=== PATIENT | male | born 1950 | race Caucasian/White ===

== ENCOUNTER 2018-11-17 10:09 | Emergency (ER) | payer MEDICARE, SELFPAY ==
[2018-11-17 10:10] VITALS: PULSE 78; RESP 18; O2SAT 98
[2018-11-17 10:19] VITALS: BP 197/98; PULSE 77; RESP 15; TEMP 36.6; O2SAT 98
--- NOTE | 2018-11-17 10:32 | DI.RAD.S_ITS ---
PROCEDURE: XR CHEST 2V INDICATIONS: pluritic chest pain / sob. TECHNIQUE: 2 views of the chest were acquired. COMPARISON: None. FINDINGS: Surgical changes and devices: None. Lungs and pleura: Lungs are clear. No pleural effusions or pneumothorax. Mediastinum: Mediastinal contours are normal. Heart size is normal. Bones and chest wall: No suspicious bony abnormalities. Soft tissues appear unremarkable. IMPRESSION: No acute cardiopulmonary disease process. Dictated by: Lou Staples MD, PhD on 11/17/2018 at 10:45 Approved by: Lou Staples MD, PhD on 11/17/2018 at 10:45
[2018-11-17 11:20] LABS: Add Manual Diff / Slide Review NO; Basophils Absolute Auto 100 /uL (0-100); Basophils Percent Auto 1.1 % (0-2); Eosinophils Absolute Auto 400 /uL (0-450); Eosinophils Percent Auto 4.2 % (2-4); Hematocrit 54.1 % (41-53); Hemoglobin 18.5 g/dL (13.5-17.5); Lymphocytes Absolute Auto 2600 /uL (1100-4500); Lymphocytes Percent Auto 28.7 % (25-40); Mean Corpuscular HGB Conc 34.2 % (30-36); Mean Corpuscular Hemoglobin 30.8 PG (26-34); Mean Corpuscular Volume 90.1 fL (80-100); Monocytes Absolute Auto 700 /uL (0-900); Monocytes Percent Auto 7.6 % (3-14); Neutrophils Absolute Auto 5300 /uL (1500-7000); Neutrophils Percent Auto 58.4 % (50-75); Platelet Count 262 X10^3/uL (150-400); Red Cell Distribution Width 13.9 % (11.6-14.8); White Blood Cell Count 9.1 X10^3/uL (4.5-11.0)
[2018-11-17 11:33] LABS: Alanine Aminotransferase 38 IU/L (21-72); Albumin 4.4 g/dL (3.5-5.0); Albumin Globulin Ratio 1.3 (1.0-2.8); Alkaline Phosphatase 144 U/L (38-126); Aspartate Aminotransferase 31 IU/L (17-59); BUN Creatinine Ratio 21.3 (6-22); Bilirubin Total 0.5 mg/dL (0.2-1.3); Blood Urea Nitrogen 17 mg/dL (9-20); Carbon Dioxide 23 mmol/L (22-32); Chloride 107 mmol/L (98-107); Creatine Kinase 55 U/L (55-170); Estimated Glomerular Filt Rate > 60.0 mL/min (>60); Globulin 3.5 g/dL (1.7-4.1); Glucose 104 mg/dL (80-110); HEMOLYSIS 20 (0-50); Lipase 43 U/L (23-300); Potassium 4.5 mmol/L (3.4-5.1); Sodium 139 mmol/L (137-145); Total Protein 7.9 g/dL (6.3-8.2)
[2018-11-17 11:35] VITALS: BP 189/90; PULSE 81; RESP 18; O2SAT 96
[2018-11-17 11:45] LABS: Troponin I < 0.012 ng/mL (0.01-0.034)
[2018-11-17 12:00] VITALS: BP 183/84; PULSE 84; RESP 19; O2SAT 95
--- NOTE | 2018-11-17 12:23 | ED.CHESTPAIN ---
HPI - Chest Pain General Chief Complaint: Chest Pain Stated Complaint: chest pain, hard to breathe, cant lift rt arm Time Seen by Provider: 11/17/18 12:20 Source: patient and family () Mode of arrival: ambulatory Limitations: no limitations History of Present Illness HPI narrative: This is a 67-year-old male who comes in with complaint of anterior chest pain but also pain down the right side and sometimes the left side of his side/chest/back. Patient states that is worse with movement. Particularly if he lifts his arms up over his head. If he bends over. He has also started complaining of some hip pain and pain in his arches of his feet and joints such as his knees and ankles. 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 He states he has been very hard on his body. He states that he can reproduce the chest pain by pushing on his chest. If he coughs it makes it worse. He does not feel short of breath at this time. He does not find that exertion makes him more short of breath. He has not had any nausea, no vomiting no diaphoresis with these episodes. He has not had any swelling in his lower extremities. No abdominal pain. no issues with urination. No diarrhea or constipation. He has not had any cold cough or congestion. Patient states that he was diagnosed with hypertension several years ago, he has not followed up for continued with his lisinopril. He saw about a year ago but does not followup 1 regularly. He has not had any prior surgeries. He has never had a stress test. He does not have any known cardiac, pulmonary embolic or autoimmune family history of that he is aware of. He does smoke. Related Data Home Medications Medication Instructions Recorded Confirmed ibuprofen 1 dose PO PRN PRN 11/17/18 11/17/18 naproxen sodium [Aleve] 220 mg PO PRN PRN 11/17/18 11/17/18 Allergies Allergy/AdvReac Type Severity Reaction Status Date / Time No Known Drug Allergies Allergy Verified 11/17/18 10:13 Review of Systems Review of Systems ROS Unobtainable: All systems reviewed & are unremarkable except as noted in HPI and below Constitutional Denies chills, Denies fever(s), Denies headache(s), Denies lethargy and Denies weakness ENT Ears, Nose, Mouth, and Throat: Denies headache(s) and Denies nasal congestion Cardiovascular Reports chest pain (Worse with movement), Denies chest pain at rest, Denies chest pain with activity, Denies diaphoresis, Denies syncope, Denies rapid heart rate, Denies edema, Denies irregular heart rhythm, Denies lightheadedness, Denies radiating jaw, neck or arm pain, Denies palpitations, Denies dyspnea, Denies dyspnea on exertion and Denies orthopnea Respiratory Denies change in phlegm color, Denies chest congestion, Denies cough, Denies hemoptysis, Reports pain with cough, Denies dyspnea, Denies dyspnea on exertion and Denies wheezing Gastrointestinal Gastrointestinal: Denies abdominal pain, Denies melena, Denies hematochezia, Denies change in bowel habits, Denies diarrhea, Denies nausea and Denies vomiting Genitourinary Denies hematuria, Denies dysuria, Denies flank pain, Denies urinary hesitancy, Denies urinary incontinence and Denies urinary urgency Musculoskeletal Reports back pain, Denies myalgias, Reports arthralgias and Denies tingling Integumentary/Breasts Denies rash and Denies unusual bruising Neurologic Denies syncope, Denies headache(s), Denies sensory deficit, Denies tingling and Denies weakness Endocrine Denies palpitations Allergic/Immunologic Denies wheezing [facility] Medical History (Updated 11/17/18 @ 19:37 by Dayna Liu DO) Hypertension (Chronic) Social History Smoking Status: Current every day smoker Social History (Updated 11/17/18 @ 19:31 by Dayna Liu DO) marital status: Smoking Status: Current every day smoker alcohol intake: current substance use type: does not use and marijuana Exam Narrative Exam Narrative: GENERAL: Alert and oriented x three, HEENT: Head normocephalic, atraumatic, EOMI, pupils reactive, face symmetric, moist mucous membranes NECK: Supple, full range of motion CARDIOVASCULAR: Regular rate and rhythm without murmurs, rubs or gallops. Able to recreated pain with palpation of anterior sternum. RESPIRATORY: Breath sounds equal bilaterally, no wheezes rales or rhonchi. No tachypnea. No accessory muscle use. ABDOMEN: Soft, nontender. Normoactive bowel sounds all 4 quadrants. No guarding or rebound, rigidity, no mass, patient has umbilical hernia that is nontender. Soft and reducible. : No CVA tenderness EXTREMITIES: Normal range of motion, no clubbing or edema. 2+ pulses in all 4 extremities. Neurovascularly intact NEUROLOGICAL: Cranial nerves II through XII grossly intact. Moving all extremities SKIN: Warm, dry, no petechiae, no rashes or lesions. Initial Vital Signs Initial Vital Signs: Vital Signs Pulse Rate 78 11/17/18 10:10 Respiratory Rate 18 11/17/18 10:10 Pulse Oximetry 98 11/17/18 10:10 Scores HEART Score Heart Score history: Slightly Suspicious Heart Score EKG: Non-Specific repolarization disturbance Heart Score Age: > or = 65 years old Heart Score risk factors: 1-2 risk factors Heart Score troponin: < or = to normal limit Heart Score Total: 4 Course Orders Ordered: ED Orders 11/17/18 10:32 XR chest 2V Stat 11/17/18 11:10 Complete Blood Count AUTO DIFF Stat Comprehensive Metabolic Panel Stat Lipase Stat Troponin & CK Cardiac Panel Stat 11/17/18 11:16 Erythrocyte Sedimentation Rate Stat Thyroid Stimulating Hormone Stat Vital Signs - 8 hr 11/17/18 11:35 11/17/18 12:00 Pulse Rate 81 84 Respiratory Rate 18 19 Blood Pressure [Right Arm] 189/90 H 183/84 H Pulse Oximetry 96 95 MDM - Chest Pain Lab Data Attestation: I reviewed the patient's lab results. Result diagrams: 11/17/18 11:10 11/17/18 11:10 Lab Results 11/17/18 11/17/18 11/17/18 Range/Units 11:10 11:10 11:16 WBC 9.1 (4.5-11.0) X10^3/uL RBC 6.00 H (4.5-5.9) X10^6/uL Hgb 18.5 H (13.5-17.5) g/dL Hct 54.1 H (41-53) % MCV 90.1 (80-100) fL MCH 30.8 (26-34) PG MCHC 34.2 (30-36) % RDW 13.9 (11.6-14.8) % Plt Count 262 (150-400) X10^3/uL Neut % (Auto) 58.4 (50-75) % Lymph % (Auto) 28.7 (25-40) % [place] % (Auto) 7.6 (3-14) % Eos % (Auto) 4.2 H (2-4) % Baso % (Auto) 1.1 (0-2) % Neut # (Auto) 5300 (8860-9216) /uL Lymph # (Auto) 2600 (2120-5465) /uL [place] # (Auto) 700 (0-900) /uL Eos # (Auto) 400 (0-450) /uL Baso # (Auto) 100 (0-100) /uL ESR 2 (0-15) MM/HR Sodium 139 (137-145) mmol/L Potassium 4.5 (3.4-5.1) mmol/L Chloride 107 (98-107) mmol/L Carbon Dioxide 23 (22-32) mmol/L BUN 17 (9-20) mg/dL Creatinine 0.80 (0.66-1.25) mg/dL Estimated GFR > 60.0 (>60) mL/min BUN/Creatinine Ratio 21.3 (6-22) Glucose 104 (80-110) mg/dL Calcium 9.0 (8.4-10.2) mg/dL Total Bilirubin 0.5 (0.2-1.3) mg/dL AST 31 (17-59) IU/L ALT 38 (21-72) IU/L Alkaline Phosphatase 144 H (38-126) U/L Total Creatine Kinase 55 (55-170) U/L CK-MB (CK-2) TNP CK-MB (CK-2) Rel Index TNP Troponin I < 0.012 (0.01-0.034) ng/mL Total Protein 7.9 (6.3-8.2) g/dL Albumin 4.4 (3.5-5.0) g/dL Globulin 3.5 (1.7-4.1) g/dL Albumin/Globulin Ratio 1.3 (1.0-2.8) Lipase 43 (23-300) U/L TSH (0.47-4.68) uIU/mL 11/17/18 Range/Units 11:16 WBC (4.5-11.0) X10^3/uL RBC (4.5-5.9) X10^6/uL Hgb (13.5-17.5) g/dL Hct (41-53) % MCV (80-100) fL MCH (26-34) PG MCHC (30-36) % RDW (11.6-14.8) % Plt Count (150-400) X10^3/uL Neut % (Auto) (50-75) % Lymph % (Auto) (25-40) % [place] % (Auto) (3-14) % Eos % (Auto) (2-4) % Baso % (Auto) (0-2) % Neut # (Auto) (5702-5586) /uL Lymph # (Auto) (0887-1513) /uL [place] # (Auto) (0-900) /uL Eos # (Auto) (0-450) /uL Baso # (Auto) (0-100) /uL ESR (0-15) MM/HR Sodium (137-145) mmol/L Potassium (3.4-5.1) mmol/L Chloride (98-107) mmol/L Carbon Dioxide (22-32) mmol/L BUN (9-20) mg/dL Creatinine (0.66-1.25) mg/dL Estimated GFR (>60) mL/min BUN/Creatinine Ratio (6-22) Glucose (80-110) mg/dL Calcium (8.4-10.2) mg/dL Total Bilirubin (0.2-1.3) mg/dL AST (17-59) IU/L ALT (21-72) IU/L Alkaline Phosphatase (38-126) U/L Total Creatine Kinase (55-170) U/L CK-MB (CK-2) CK-MB (CK-2) Rel Index Troponin I (0.01-0.034) ng/mL Total Protein (6.3-8.2) g/dL Albumin (3.5-5.0) g/dL Globulin (1.7-4.1) g/dL Albumin/Globulin Ratio (1.0-2.8) Lipase (23-300) U/L TSH 3.31 (0.47-4.68) uIU/mL Imaging Data Chest x-ray: Radiologist's impression: Krish Cunningham 67 M [address] [address] XRay Report Signed Patient: Krish Cunningham EMR#: [id number] : 3Acct:[id number] Age/Sex: 67 / MDate of Service: 11/17/18 Loc: ED Accession Number: [id number] Procedure: XR chest 2V Ordering Provider: Dayna Liu D.O. PROCEDURE: XR CHEST 2V INDICATIONS: pluritic chest pain / sob. TECHNIQUE: 2 views of the chest were acquired. COMPARISON: None. FINDINGS: Surgical changes and devices: None. Lungs and pleura: Lungs are clear. No pleural effusions or pneumothorax. Mediastinum: Mediastinal contours are normal. Heart size is normal. Bones and chest wall: No suspicious bony abnormalities. Soft tissues appear unremarkable. IMPRESSION: No acute cardiopulmonary disease process. Dictated by: Lou Staples MD, PhD on 11/17/2018 at 10:45 Approved by: Lou Staples MD, PhD on 11/17/2018 at 10:45 ECG Data Attestation: I personally reviewed and interpreted this ECG as follows: Prior ECG tracings: not available for review Interpretation: Sinus rhythm ventricular rate of 78 P are interval 171 QRS of 105 and QTC of 384. Sinus rhythm. Q-waves in V1 V2. Left axis deviation MDM Narrative Medical decision making narrative: Discussed with the patient all of his pain seems to be with movement and not with exertion or atypical cardiac chest pain. He is also having pain in his other joints. 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 We did discuss checking YANNI an ESR although these are very nonspecific labs. He also may benefit from a TSH which was checked and is in normal range. The rest of his lab work is normal. He has had his symptoms of chest pain on for several weeks to month. He came in today because he did want to go to work because of his discomfort. He is not having any shortness of breath. he does have some risk factors sounds like he has history of hypertension, he may have dyslipidemia he has obesity and he smokes regularly. Family history his mom from CHF at about 89 and did not have a lot of medical problems before then his father from cancer either gastric or possibly esophageal at 87. Discussed with the patient he should have a primary care stress testing may be helpful for him. He is seems willing. Was given referral number. We also discussed his umbilical hernia. Discussed signs and symptoms to watch for and need for surgical repair if he has any of these. Discharge Plan Departure Patient Disposition: Home Clinical Impression: Chest pain, Hernia, umbilical, Joint pain Discharge Date/Time: 11/17/18 12:55 Interventions: ED Discharge Assessment Last Done: 11/17/18 12:53 Instructions: DI for Atypical Chest Pain Activity Restrictions/Additional Instructions: Follow up with primary care, call the Health resources coordinator at [phone] to help find a primary care physician. I do recommend following up regarding your blood pressure, to check your cholesterol as well as discussion about stress testing. You may continue with ibuprofen and/or Tylenol as needed for joint pain. Return to the ER for fevers greater than 100.4, worsening or new chest pain, shortness of breath, diaphoresis, nausea or persistent vomiting, passing out, sudden severe abdominal pain, if your umbilical hernia becomes painful or you are not able to reduce it, or other new or concerning symptoms. Prescriptions: No Action naproxen sodium [Aleve] 220 mg Tablet 220 mg PO PRN PRN (Reason: pain) RF: 0 ibuprofen 200 mg Tablet 1 dose PO PRN PRN (Reason: pain) RF: 0
--- NOTE | 2018-11-17 12:59 | ED_ITS ---
HPI - Chest Pain General Chief Complaint: Chest Pain Stated Complaint: chest pain, hard to breathe, cant lift rt arm Time Seen by Provider: 11/17/18 12:20 Source: patient and family () Mode of arrival: ambulatory Limitations: no limitations History of Present Illness HPI narrative: This is a 67-year-old male who comes in with complaint of anterior chest pain but also pain down the right side and sometimes the left side of his side/chest/back. Patient states that is worse with movement. Particularly if he lifts his arms up over his head. If he bends over. He has also started complaining of some hip pain and pain in his arches of his feet and joints such as his knees and ankles. 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 He states he has been very hard on his body. He states soto t he can reproduce the chest pain by pushing on his chest. If he coughs it makes it worse. He does not feel short of breath at this time. He does not find that exertion makes him more short of breath. He has not had any nausea, no vomiting no diaphoresis with these episodes. He has not had any swelling in his lower extremities. No abdominal pain. no issues with urination. No diarrhea or constipation. He has not had any cold cough or congestion. Patient states that he was diagnosed with hypertension several years ago, he has not followed up for continued with his lisinopril. He saw about a year ago but does not followup 1 regularly. He has not had any prior surgeries. He has never had a stress test. He does not have any known cardiac, pulmonary embolic or autoimmune family history of that he is aware of. He does smoke. Related Data Home Medications Medication Instructions Recorded Confirmed ibuprofen 1 dose PO PRN PRN 11/17/18 11/17/18 naproxen sodium [Aleve] 220 mg PO PRN PRN 11/17/18 11/17/18 Allergies Allergy/AdvReac Type Severity Reaction Status Date / Time No Known Drug Allergies Allergy Verified 11/17/18 10:13 Review of Systems Review of Systems ROS Unobtainable: All systems reviewed & are unremarkable except as noted in HPI and below Constitutional Denies chills, Denies fever(s), Denies headache(s), Denies lethargy and Denies weakness ENT Ears, Nose, Mouth, and Throat: Denies headache(s) and Denies nasal congestion Cardiovascular Reports chest pain (Worse with movement), Denies chest pain at rest, Denies chest pain with activity, Denies diaphoresis, Denies syncope, Denies rapid heart rate, Denies edema, Denies irregular heart rhythm, Denies lightheadedness, Denies radiating jaw, neck or arm pain, Denies palpitations, Denies dyspnea, Denies dyspnea on exertion and Denies orthopnea Respiratory Denies change in phlegm color, Denies chest congestion, Denies cough, Denies hemoptysis, Reports pain with cough, Denies dyspnea, Denies dyspnea on exertion and Denies wheezing Gastrointestinal Gastrointestinal: Denies abdominal pain, Denies melena, Denies hematochezia, Denies change in bowel habits, Denies diarrhea, Denies nausea and Denies vomiting Genitourinary Denies hematuria, Denies dysuria, Denies flank pain, Denies urinary hesitancy, Denies urinary incontinence and Denies urinary urgency Musculoskeletal Reports back pain, Denies myalgias, Reports arthralgias and Denies tingling Integumentary/Breasts Denies rash and Denies unusual bruising Neurologic Denies syncope, Denies headache(s), Denies sensory deficit, Denies tingling and Denies weakness Endocrine Denies palpitations Allergic/Immunologic Denies wheezing [facility] Medical History (Updated 11/17/18 @ 19:37 by Dayna Liu DO) Hypertension (Chronic) Social History Smoking Status: Current every day smoker Social History (Updated 11/17/18 @ 19:31 by Dayna Liu DO) marital status: Smoking Status: Current every day smoker alcohol intake: current substance use type: does not use and marijuana Exam Narrative Exam Narrative: GENERAL: Alert and oriented x three, HEENT: Head normocephalic, atraumatic, EOMI, pupils reactive, face symmetric, moist mucous membranes NECK: Supple, full range of motion CARDIOVASCULAR: Regular rate and rhythm without murmurs, rubs or gallops. Able to recreated pain with palpation of anterior sternum. RESPIRATORY: Breath sounds equal bilaterally, no wheezes rales or rhonchi. No tachypnea. No accessory muscle use. ABDOMEN: Soft, nontender. Normoactive bowel sounds all 4 quadrants. No guarding or rebound, rigidity, no mass, patient has umbilical hernia that is nontender. Soft and reducible. : No CVA tenderness EXTREMITIES: Normal range of motion, no clubbing or edema. 2+ pulses in all 4 extremities. Neurovascularly intact NEUROLOGICAL: Cranial nerves II through XII grossly intact. Moving all extremities SKIN: Warm, dry, no petechiae, no rashes or lesions. Initial Vital Signs Initial Vital Signs: Vital Signs Pulse Rate 78 11/17/18 10:10 Respiratory Rate 18 11/17/18 10:10 Pulse Oximetry 98 11/17/18 10:10 Scores HEART Score Heart Score history: Slightly Suspicious Heart Score EKG: Non-Specific repolarization disturbance Heart Score Age: > or = 65 years old Heart Score risk factors: 1-2 risk factors Heart Score troponin: < or = to normal limit Heart Score Total: 4 Course Orders Ordered: ED Orders 11/17/18 10:32 XR chest 2V Stat 11/17/18 11:10 Complete Blood Count AUTO DIFF Stat Comprehensive Metabolic Panel Stat Lipase Stat Troponin & CK Cardiac Panel Stat 11/17/18 11:16 Erythrocyte Sedimentation Rate Stat Thyroid Stimulating Hormone Stat Vital Signs - 8 hr 11/17/18 11:35 11/17/18 12:00 Pulse Rate 81 84 Respiratory Rate 18 19 Blood Pressure [Right Arm] 189/90 H 183/84 H Pulse Oximetry 96 95 MDM - Chest Pain Lab Data Attestation: I reviewed the patient's lab results. Result diagrams: 11/17/18 11:10 11/17/18 11:10 Lab Results 11/17/18 11/17/18 11/17/18 Range/Units 11:10 11:10 11:16 WBC 9.1 (4.5-11.0) X10^3/uL RBC 6.00 H (4.5-5.9) X10^6/uL Hgb 18.5 H (13.5-17.5) g/dL Hct 54.1 H (41-53) % MCV 90.1 (80-100) fL MCH 30.8 (26-34) PG MCHC 34.2 (30-36) % RDW 13.9 (11.6-14.8) % Plt Count 262 (150-400) X10^3/uL Neut % (Auto) 58.4 (50-75) % Lymph % (Auto) 28.7 (25-40) % [place] % (Auto) 7.6 (3-14) % Eos % (Auto) 4.2 H (2-4) % Baso % (Auto) 1.1 (0-2) % Neut # (Auto) 5300 (6328-5134) /uL Lymph # (Auto) 2600 (6563-8980) /uL [place] # (Auto) 700 (0-900) /uL Eos # (Auto) 400 (0-450) /uL Baso # (Auto) 100 (0-100) /uL ESR 2 (0-15) MM/HR Sodium 139 (137-145) mmol/L Potassium 4.5 (3.4-5.1) mmol/L Chloride 107 (98-107) mmol/L Carbon Dioxide 23 (22-32) mmol/L BUN 17 (9-20) mg/dL Creatinine 0.80 (0.66-1.25) mg/dL Estimated GFR > 60.0 (>60) mL/min BUN/Creatinine Ratio 21.3 (6-22) Glucose 104 (80-110) mg/dL Calcium 9.0 (8.4-10.2) mg/dL Total Bilirubin 0.5 (0.2-1.3) mg/dL AST 31 (17-59) IU/L ALT 38 (21-72) IU/L Alkaline Phosphatase 144 H (38-126) U/L Total Creatine Kinase 55 (55-170) U/L CK-MB (CK-2) TNP CK-MB (CK-2) Rel Index TNP Troponin I < 0.012 (0.01-0.034) ng/mL Total Protein 7.9 (6.3-8.2) g/dL Albumin 4.4 (3.5-5.0) g/dL Globulin 3.5 (1.7-4.1) g/dL Albumin/Globulin Ratio 1.3 (1.0-2.8) Lipase 43 (23-300) U/L TSH (0.47-4.68) uIU/mL 11/17/18 Range/Units 11:16 WBC (4.5-11.0) X10^3/uL RBC (4.5-5.9) X10^6/uL Hgb (13.5-17.5) g/dL Hct (41-53) % MCV (80-100) fL MCH (26-34) PG MCHC (30-36) % RDW (11.6-14.8) % Plt Count (150-400) X10^3/uL Neut % (Auto) (50-75) % Lymph % (Auto) (25-40) % [place] % (Auto) (3-14) % Eos % (Auto) (2-4) % Baso % (Auto) (0-2) % Neut # (Auto) (5431-8033) /uL Lymph # (Auto) (0082-6039) /uL [place] # (Auto) (0-900) /uL Eos # (Auto) (0-450) /uL Baso # (Auto) (0-100) /uL ESR (0-15) MM/HR Sodium (137-145) mmol/L Potassium (3.4-5.1) mmol/L Chloride (98-107) mmol/L Carbon Dioxide (22-32) mmol/L BUN (9-20) mg/dL Creatinine (0.66-1.25) mg/dL Estimated GFR (>60) mL/min BUN/Creatinine Ratio (6-22) Glucose (80-110) mg/dL Calcium (8.4-10.2) mg/dL Total Bilirubin (0.2-1.3) mg/dL AST (17-59) IU/L ALT (21-72) IU/L Alkaline Phosphatase (38-126) U/L Total Creatine Kinase (55-170) U/L CK-MB (CK-2) CK-MB (CK-2) Rel Index Troponin I (0.01-0.034) ng/mL Total Protein (6.3-8.2) g/dL Albumin (3.5-5.0) g/dL Globulin (1.7-4.1) g/dL Albumin/Globulin Ratio (1.0-2.8) Lipase (23-300) U/L TSH 3.31 (0.47-4.68) uIU/mL Imaging Data Chest x-ray: Radiologist's impression: Krish Cunningham 67 M [address] [address] XRay Report Signed Patient: Krish Cunningham EMR#: [id number] : 3Acct:[id number] Age/Sex: 67 / MDate of Service: 11/17/18 Loc: ED Accession Number: [id number] Procedure: XR chest 2V Ordering Provider: Dayna Liu D.O. PROCEDURE: XR CHEST 2V INDICATIONS: pluritic chest pain / sob. TECHNIQUE: 2 views of the chest were acquired. COMPARISON: None. FINDINGS: Surgical changes and devices: None. Lungs and pleura: Lungs are clear. No pleural effusions or pneumothorax. Mediastinum: Mediastinal contours are normal. Heart size is normal. Bones and chest wall: No suspicious bony abnormalities. Soft tissues appear unremarkable. IMPRESSION: No acute cardiopulmonary disease process. Dictated by: Lou Staples MD, PhD on 11/17/2018 at 10:45 Approved by: Lou Staples MD, PhD on 11/17/2018 at 10:45 ECG Data Attestation: I personally reviewed and interpreted this ECG as follows: Prior ECG tracings: not available for review Interpretation: Sinus rhythm ventricular rate of 78 P are interval 171 QRS of 105 and QTC of 384. Sinus rhythm. Q-waves in V1 V2. Left axis deviation MDM Narrative Medical decision making narrative: Discussed with the patient all of his pain seems to be with movement and not with exertion or atypical cardiac chest pain. He is also having pain in his other joints. 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 We did discuss checking YANNI an ESR although these are very nonspecific labs. He also may benefit from a TSH which was checked and is in normal range. The rest of his lab work is normal. He has had his symptoms of chest pain on for several weeks to month. He came in today because he did want to go to work because of his discomfort. He is not having any shortness of breath. he does have some risk factors sounds like he has history of hypertension, he may have dyslipidemia he has obesity and he smokes regularly. Family history his mom from CHF at about 89 and did not have a lot of medical problems before then his father from cancer either gastric or possibly esophageal at 87. Discussed with the patient he should have a primary care stress testing may be helpful for him. He is s eems willing. Was given referral number. We also discussed his umbilical hernia. Discussed signs and symptoms to watch for and need for surgical repair if he has any of these. Discharge Plan Departure Patient Disposition: Home Clinical Impression: Chest pain, Hernia, umbilical, Joint pain Discharge Date/Time: 11/17/18 12:55 Interventions: ED Discharge Assessment Last Done: 11/17/18 12:53 Instructions: DI for Atypical Chest Pain Activity Restrictions/Additional Instructions: Follow up with primary care, call the Health resources coordinator at [phone] to help find a primary care physician. I do recommend following up regarding your blood pressure, to check your cholesterol as well as discussion about stress testing. You may continue with ibuprofen and/or Tylenol as needed for joint pain. Return to the ER for fevers greater than 100.4, worsening or new chest pain, shortness of breath, diaphoresis, nausea or persistent vomiting, passing out, sudden severe abdominal pain, if your umbilical hernia becomes painful or you are not able to reduce it, or other new or concerning symptoms. Prescriptions: No Action naproxen sodium [Aleve] 220 mg Tablet 220 mg PO PRN PRN (Reason: pain) RF: 0 ibuprofen 200 mg Tablet 1 dose PO PRN PRN (Reason: pain) RF: 0
[2018-11-17 13:15] LABS: Erythrocyte Sedimentation Rate 2 MM/HR (0-15)
[2018-11-17 13:35] LABS: Thyroid Stimulating Hormone 3.31 uIU/mL (0.47-4.68)
[2018-11-19 20:48] LABS: ANA Screen, IFA Negative (Negative)
== END 2018-11-17 12:55 | disposition home or self-care (01) ==
PROVIDERS: Emergency Provider Emergency Medicine
DX: R07.89 Other chest pain (principal); R06.02 Shortness of breath
CPT/HCPCS: 36591; 71046; 80053; 82550; 83690; 84443; 84484; 85025; 85651; 86038; 93005; 93041; 99283; 99285

== ENCOUNTER 2018-11-22 16:13 | Emergency (ER) | payer MEDICARE, SELFPAY ==
[2018-11-22 16:19] VITALS: BP 179/92; PULSE 92; RESP 20; TEMP 36.1; O2SAT 97
--- NOTE | 2018-11-22 16:25 | PC.NURSE ---
Patient seen and evaluated by PCP after evaluation in ED. Had a fair day yesterday with naproxen and muscle relaxant. At 0500 this morning patient had a cough felt severe pain in back on right side of ribs. Reports pain severely worse with deep breath and movement.
--- NOTE | 2018-11-22 16:51 | ED.BACK ---
HPI - Back Pain/Injury <JANICE Chaudhry- - Last Filed: 11/22/18 18:56> General Chief Complaint: Back Pain/Injury Stated Complaint: back pain after cough Time Seen by Provider: 11/22/18 16:28 Source: patient and family Mode of arrival: ambulatory Limitations: no limitations History of Present Illness HPI Narrative: Patient is a 67-year-old male who presents with his and mother for a chief complaint of back pain and right-sided chest pain after he coughed at 5:00 a.m. today. He has been being treated for muscle spasm and musculoskeletal pain by his primary care provider. He was also seen in the emergency department on the of this month, but followed up with his primary care provider yesterday. He was started on Flexeril. He states he took 2 Flexeril at once 1 hour prior to arrival with no relief. He states otherwise he took naproxen this morning. He denies any fevers, palpitations, nausea vomiting diarrhea. He denies any constipation or abdominal pain. Related Data Previous Rx's Medication Instructions Recorded cyclobenzaprine 10 mg tablet 10 mg PO BEDTIME PRN #14 tab 11/21/18 lisinopril 10 mg tablet 10 mg PO DAILY #30 tab 11/21/18 naproxen 500 mg tablet 500 mg PO BID 14 Days #28 tab 11/21/18 hydrocodone-acetaminophen [[place]] 1 tab PO Q4-6H PRN #10 tab 11/22/18 lidocaine 1 patch TOP DAILY #15 each 11/22/18 Allergies Allergy/AdvReac Type Severity Reaction Status Date / Time No Known Drug Allergies Allergy Verified 11/21/18 15:47 Review of Systems <CHELI Chaudhry - Last Filed: 11/22/18 18:56> Review of Systems GENERAL: Denies chills, fatigue, malaise, fever, sweats. HEENT: Denies sinus pain, ear pain, sore throat, difficulty swallowing, dizziness. RESPIRATORY: Denies dyspnea, cough, wheezing, hemoptysis, sputum. CARDIOVASCULAR: See HPI GASTROINTESTINAL: Denies nausea, vomiting, abdominal pain, diarrhea, constipation, melena. : Denies dysuria, frequency, incontinence, hematuria, urinary retention. MUSCULOSKELETAL: See HPI SKIN: Denies rash, skin lesions, or other NEUROLOGIC: Denies weakness, headache, numbness, change in speech, confusion, seizures, incoordination. PSYCHIATRIC: No concerning psychosocial issues. 12 point review of systems is negative except for those stated above PFSH <TANIA Chaudhry - Last Filed: 11/22/18 18:56> Medical History (Updated 11/22/18 @ 17:58 by TANIA Chaudhry) Hypertension (Chronic) Social History (Updated 11/17/18 @ 19:31 by Dayna Liu DO) marital status: Smoking Status: Current every day smoker Tobacco: How many years used: 20 quit status: considering quitting (Given handout on smoking cessation) alcohol intake: former (30 years ago) substance use type: does not use and marijuana Exam <TANIA Chaudhry - Last Filed: 11/22/18 18:56> Narrative Exam Narrative: GENERAL: This is a well-nourished, well-developed patient, sitting on side of bed. HEAD: Atraumatic. Normocephalic. No temporal or scalp tenderness. EYES: Pupils equal round and reactive. Extraocular motions intact. No scleral icterus. No injection or drainage. ENT: Nose without bleeding, purulent drainage or septal hematoma. Throat without erythema, tonsillar hypertrophy or exudate. Uvula midline. Airway patent. NECK: Trachea midline. No JVD or lymphadenopathy. Supple, nontender, no meningeal signs. CARDIOVASCULAR: Regular rate and rhythm without murmurs, gallops, or rubs. RESPIRATORY: Clear to auscultation. Breath sounds equal bilaterally. No wheezes, rales, or rhonchi. No cough. No increased respiratory effort. Patient has pain to palpation of right side of chest wall. Pain on anterior posterior chest wall compression. Pain on lateral chest wall compression. GASTROINTESTINAL: Abdomen soft, non-tender, nondistended. No hepato-splenomegaly, or palpable masses. No guarding. EXTREMITIES: No clubbing, cyanosis, or edema. No joint tenderness, effusion, or edema noted. BACK: Nontender without deformity or crepitance. No flank tenderness. pain on palpation of right paraspinal muscles throughout thorax. NEURO: AOx3. SKIN: No rash or erythema. No rash erythema or ecchymosis over the right side of chest or back. Initial Vital Signs Initial Vital Signs: Vital Signs Temperature 97 F L 11/22/18 16:19 Pulse Rate 92 H 11/22/18 16:19 Respiratory Rate 20 11/22/18 16:19 Blood Pressure 179/92 H 11/22/18 16:19 Pulse Oximetry 97 11/22/18 16:19 <Dayna Liu DO - Last Filed: 11/25/18 09:51> Initial Vital Signs Initial Vital Signs: Vital Signs Temperature 97 F L 11/22/18 16:19 Pulse Rate 92 H 11/22/18 16:19 Respiratory Rate 20 11/22/18 16:19 Blood Pressure 179/92 H 11/22/18 16:19 Pulse Oximetry 97 11/22/18 16:19 Course <CHELI ChaudhryBC - Last Filed: 11/22/18 18:56> Orders Ordered: Discontinued Medications Hydrocodone Bitart/Acetaminophen ([place] 5/325) 2 tab PO NOW ONE Stop: 11/22/18 16:47 Last Admin: 11/22/18 16:59 Dose: 2 tab Hydrocodone Bitart/Acetaminophen (Vicodin Prepack) 1 bottle MISC SEEINSTR ONE Stop: 11/22/18 17:53 Last Admin: 11/22/18 18:02 Dose: 1 bottle Vital Signs - 8 hr 11/22/18 16:19 11/22/18 17:00 11/22/18 17:59 Temperature 97 F L 97 F L Pulse Rate 92 H 92 H 88 Respiratory Rate 20 20 18 Blood Pressure 179/92 H 179/92 H Blood Pressure [Left Arm] 168/86 H Pulse Oximetry 97 97 100 <Dayna Liu DO - Last Filed: 11/25/18 09:51> Orders Ordered: Discontinued Medications Hydrocodone Bitart/Acetaminophen ([place] 5/325) 2 tab PO NOW ONE Stop: 11/22/18 16:47 Last Admin: 11/22/18 16:59 Dose: 2 tab Hydrocodone Bitart/Acetaminophen (Vicodin Prepack) 1 bottle MISC SEEINSTR ONE Stop: 11/22/18 17:53 Last Admin: 11/22/18 18:02 Dose: 1 bottle Vital Signs - 8 hr 11/22/18 16:19 11/22/18 17:00 11/22/18 17:59 Temperature 97 F L 97 F L Pulse Rate 92 H 92 H 88 Respiratory Rate 20 20 18 Blood Pressure 179/92 H 179/92 H Blood Pressure [Left Arm] 168/86 H Pulse Oximetry 97 97 100 [facility] - Back Pain/Injury <Dayna DavilaJANICE- - Last Filed: 11/22/18 18:56> [facility] Narrative Medical decision making narrative: The patient is a 67-year-old male presenting with the chief complaint of right-sided chest pain after coughing this morning. The patient declined an x-ray. I discussed at length that we do not usually treat chronic pain in the emergency department with narcotics. However given that the patient followed up with primary care provider I am willing to do so at this point time as long as he follows up with his primary care provider on Saturday. I also gave him a prescription for lidocaine patches. He was given 2 [place] in the emergency department. I discussed at length return precautions including shortness of breath, chest pain and concern of heart attack. Patient and stated understanding and have no questions or concerns upon discharge. Discharge Plan Departure Patient Disposition: Home Clinical Impression: Muscle spasm, Chest wall pain Discharge Date/Time: 11/22/18 18:05 Interventions: ED Discharge Assessment Last Done: 11/22/18 18:05 Instructions: DI for Atypical Chest Pain, DI for Muscle Spasm Activity Restrictions/Additional Instructions: I have given you some pain medication for her chest wall muscle spasm. Please follow up with her primary care provider on Saturday. Please be aware this could be sedating, constipating and especially sedating if combined Flexeril. Please do not take them at the same time. Please continue the NSAIDs and muscle relaxers prescribed by her primary care physician as well. Please follow up with her primary care as soon as possible. Please come back to emergency department for any acute concerns including shortness of breath or chest pain. Prescriptions: New hydrocodone-acetaminophen [[place]] 5-325 mg tablet 1 tab PO Q4-6H PRN (Reason: pain) Qty: 10 RF: 0 lidocaine 5 % adhesive patch,medicated 1 patch TOP DAILY Qty: 15 RF: 0 No Action cyclobenzaprine 10 mg tablet 10 mg PO BEDTIME PRN (Reason: muscle spasm) Qty: 14 RF: 1 naproxen 500 mg tablet 500 mg PO BID 14 Days Qty: 28 RF: 1 lisinopril 10 mg tablet 10 mg PO DAILY Qty: 30 RF: 1 Referrals: Prince Mike ARNP [[facility]] - <Dayna Liu DO - Last Filed: 11/25/18 09:51> Cosign ED Attending Cosignature Attestation: I was immediately available in the department for consultation. This documentation has been reviewed and I agree with assessment and plan. Supervised by Dayna Liu DO
--- NOTE | 2018-11-22 16:55 | ED_ITS ---
HPI - Back Pain/Injury <JANICE Chaudhry- - Last Filed: 11/22/18 18:56> General Chief Complaint: Back Pain/Injury Stated Complaint: back pain after cough Time Seen by Provider: 11/22/18 16:28 Source: patient and family Mode of arrival: ambulatory Limitations: no limitations History of Present Illness HPI Narrative: Patient is a 67-year-old male who presents with his and mother for a chief complaint of back pain and right-sided chest pain after he coughed at 5:00 a.m. today. He has been being treated for muscle spasm and musculoskeletal pain by his primary care provider. He was also seen in the emergency department on the of this month, but followed up with his primary care provider yesterday. He was started on Flexeril. He states he took 2 Flexeril at once 1 hour prior to arrival with no relief. He states otherwise he took naproxen this morning. He denies any fevers, palpitations, nausea vomiting diarrhea. He denies any constipation or abdominal pain. Related Data Previous Rx's Medication Instructions Recorded cyclobenzaprine 10 mg tablet 10 mg PO BEDTIME PRN #14 tab 11/21/18 lisinopril 10 mg tablet 10 mg PO DAILY #30 tab 11/21/18 naproxen 500 mg tablet 500 mg PO BID 14 Days #28 tab 11/21/18 hydrocodone-acetaminophen [[place]] 1 tab PO Q4-6H PRN #10 tab 11/22/18 lidocaine 1 patch TOP DAILY #15 each 11/22/18 Allergies Allergy/AdvReac Type Severity Reaction Status Date / Time No Known Drug Allergies Allergy Verified 11/21/18 15:47 Review of Systems <CHELI Chaudhry - Last Filed: 11/22/18 18:56> Review of Systems GENERAL: Denies chills, fatigue, malaise, fever, sweats. HEENT: Denies sinus pain, ear pain, sore throat, difficulty swallowing, dizziness. RESPIRATORY: Denies dyspnea, cough, wheezing, hemoptysis, sputum. CARDIOVASCULAR: See HPI GASTROINTESTINAL: Denies nausea, vomiting, abdominal pain, diarrhea, constipation, melena. : Denies dysuria, frequency, incontinence, hematuria, urinary retention. MUSCULOSKELETAL: See HPI SKIN: Denies rash, skin lesions, or other NEUROLOGIC: Denies weakness, headache, numbness, change in speech, confusion, seizures, incoordination. PSYCHIATRIC: No concerning psychosocial issues. 12 point review of systems is negative except for those stated above PFSH <TANIA Chaudhry - Last Filed: 11/22/18 18:56> Medical History (Updated 11/22/18 @ 17:58 by TANIA Chaudhry) Hypertension (Chronic) Social History (Updated 11/17/18 @ 19:31 by Dayna Liu DO) marital status: Smoking Status: Current every day smoker Tobacco: How many years used: 20 quit status: considering quitting (Given handout on smoking cessation) alcohol intake: former (30 years ago) substance use type: does not use and marijuana Exam <TANIA Chaudhry - Last Filed: 11/22/18 18:56> Narrative Exam Narrative: GENERAL: This is a well-nourished, well-developed patient, sitting on side of bed. HEAD: Atraumatic. Normocephalic. No temporal or scalp tenderness. EYES: Pupils equal round and reactive. Extraocular motions intact. No scleral icterus. No injection or drainage. ENT: Nose without bleeding, purulent drainage or septal hematoma. Throat without erythema, tonsillar hypertrophy or exudate. Uvula midline. Airway patent. NECK: Trachea midline. No JVD or lymphadenopathy. Supple, nontender, no meningeal signs. CARDIOVASCULAR: Regular rate and rhythm without murmurs, gallops, or rubs. RESPIRATORY: Clear to auscultation. Breath sounds equal bilaterally. No wheezes, rales, or rhonchi. No cough. No increased respiratory effort. Patient has pain to palpation of right side of chest wall. Pain on anterior posterior chest wall compression. Pain on lateral chest wall compression. GASTROINTESTINAL: Abdomen soft, non-tender, nondistended. No hepato- splenomegaly, or palpable masses. No guarding. EXTREMITIES: No clubbing, cyanosis, or edema. No joint tenderness, effusion, or edema noted. BACK: Nontender without deformity or crepitance. No flank tenderness. pain on palpation of right paraspinal muscles throughout thorax. NEURO: AOx3. SKIN: No rash or erythema. No rash erythema or ecchymosis over the right side of chest or back. Initial Vital Signs Initial Vital Signs: Vital Signs Temperature 97 F L 11/22/18 16:19 Pulse Rate 92 H 11/22/18 16:19 Respiratory Rate 20 11/22/18 16:19 Blood Pressure 179/92 H 11/22/18 16:19 Pulse Oximetry 97 11/22/18 16:19 <Dayna Liu DO - Last Filed: 11/25/18 09:51> Initial Vital Signs Initial Vital Signs: Vital Signs Temperature 97 F L 11/22/18 16:19 Pulse Rate 92 H 11/22/18 16:19 Respiratory Rate 20 11/22/18 16:19 Blood Pressure 179/92 H 11/22/18 16:19 Pulse Oximetry 97 11/22/18 16:19 Course <CHELI ChaudhryBC - Last Filed: 11/22/18 18:56> Orders Ordered: Discontinued Medications Hydrocodone Bitart/Acetaminophen ([place] 5/325) 2 tab PO NOW ONE Stop: 11/22/18 16:47 Last Admin: 11/22/18 16:59 Dose: 2 tab Hydrocodone Bitart/Acetaminophen (Vicodin Prepack) 1 bottle MISC SEEINSTR ONE Stop: 11/22/18 17:53 Last Admin: 11/22/18 18:02 Dose: 1 bottle Vital Signs - 8 hr 11/22/18 16:19 11/22/18 17:00 11/22/18 17:59 Temperature 97 F L 97 F L Pulse Rate 92 H 92 H 88 Respiratory Rate 20 20 18 Blood Pressure 179/92 H 179/92 H Blood Pressure [Left Arm] 168/86 H Pulse Oximetry 97 97 100 <Dayna Liu DO - Last Filed: 11/25/18 09:51> Orders Ordered: Discontinued Medications Hydrocodone Bitart/Acetaminophen ([place] 5/325) 2 tab PO NOW ONE Stop: 11/22/18 16:47 Last Admin: 11/22/18 16:59 Dose: 2 tab Hydrocodone Bitart/Acetaminophen (Vicodin Prepack) 1 bottle MISC SEEINSTR ONE Stop: 11/22/18 17:53 Last Admin: 11/22/18 18:02 Dose: 1 bottle Vital Signs - 8 hr 11/22/18 16:19 11/22/18 17:00 11/22/18 17:59 Temperature 97 F L 97 F L Pulse Rate 92 H 92 H 88 Respiratory Rate 20 20 18 Blood Pressure 179/92 H 179/92 H Blood Pressure [Left Arm] 168/86 H Pulse Oximetry 97 97 100 [facility] - Back Pain/Injury <Dayna DavilaJANICE- - Last Filed: 11/22/18 18:56> [facility] Narrative Medical decision making narrative: The patient is a 67-year-old male presenting with the chief complaint of right-sided chest pain after coughing this morning. The patient declined an x-ray. I discussed at length that we do not usually treat chronic pain in the emergency department with narcotics. However given that the patient followed up with primary care provider I am willing to do so at this point time as long as he follows up with his primary care provider on Saturday. I also gave him a prescription for lidocaine patches. He was given 2 [place] in the emergency department. I discussed at length return precautions including shortness of breath, chest pain and concern of heart attack. Patient and stated understanding and have no questions or concerns upon discharge. Discharge Plan Departure Patient Disposition: Home Clinical Impression: Muscle spasm, Chest wall pain Discharge Date/Time: 11/22/18 18:05 Interventions: ED Discharge Assessment Last Done: 11/22/18 18:05 Instructions: DI for Atypical Chest Pain, DI for Muscle Spasm Activity Restrictions/Additional Instructions: I have given you some pain medication for her chest wall muscle spasm. Please follow up with her primary care provider on Saturday. Please be aware this could be sedating, constipating and especially sedating if combined Flexeril. Please do not take them at the same time. Please continue the NSAIDs and muscle relaxers prescribed by her primary care physician as well. Please follow up with her primary care as soon as possible. Please come back to emergency department for any acute concerns including shortness of breath or chest pain. Prescriptions: New hydrocodone-acetaminophen [[place]] 5-325 mg tablet 1 tab PO Q4-6H PRN (Reason: pain) Qty: 10 RF: 0 lidocaine 5 % adhesive patch,medicated 1 patch TOP DAILY Qty: 15 RF: 0 No Action cyclobenzaprine 10 mg tablet 10 mg PO BEDTIME PRN (Reason: muscle spasm) Qty: 14 RF: 1 naproxen 500 mg tablet 500 mg PO BID 14 Days Qty: 28 RF: 1 lisinopril 10 mg tablet 10 mg PO DAILY Qty: 30 RF: 1 Referrals: Prince Mike ARNP [[employer]] - <Dayna Liu DO - Last Filed: 11/25/18 09:51> Cosign ED Attending Cosignature Attestation: I was immediately available in the department for consultation. This documentation has been reviewed and I agree with assessment and plan. Supervised by Dayna Liu DO
[2018-11-22] MEDS: HYDROCODONE/ACET 5/325 TABLET 2 TAB PO (16:59)
[2018-11-22 17:00] VITALS: BP 179/92; PULSE 92; RESP 20; TEMP 36.1; O2SAT 97
[2018-11-22 17:59] VITALS: BP 168/86; PULSE 88; RESP 18; O2SAT 100
[2018-11-22] MEDS: HYDROCODONE/ACET 5/325 PREPACK 1 BOTTLE MISC (18:02)
== END 2018-11-22 18:05 | disposition home or self-care (01) ==
PROVIDERS: Emergency Provider Nurse Practitioner Family
DX: M62.838 Other muscle spasm (principal); R07.89 Other chest pain; M54.9 Dorsalgia, unspecified; R05 Cough
CPT/HCPCS: 99282; 99283

== ENCOUNTER → 2018-12-23 08:54 | Outpatient (CLI) | payer MEDICARE, SELFPAY ==
--- NOTE | 2018-12-23 08:57 | DI.CT.S_ITS ---
PROCEDURE: CT ANGIO CHEST PE PROTOCOL INDICATIONS: right chest pain, pain with inspiration TECHNIQUE: After the administration of intravenous contrast, 2 mm thick sections acquired from the pulmonary apices to the posterior costophrenic angles. 3-dimensional maximum intensity projection (MIP) coronal and sagittal reformats were then acquired through the thorax. For radiation dose reduction, the following was used: automated exposure control, adjustment of mA and/or kV according to patient size. COMPARISON: None. FINDINGS: Image quality: Excellent. Pulmonary arteries: Pulmonary arteries are normal in size, and demonstrate no intraluminal filling defects to suggest central pulmonary embolism. Lungs and pleura: Lungs are clear. Mild centrilobular emphysematous changes noted in the upper lungs. No pleural effusions or pneumothorax. Central and peripheral airways are patent. Mediastinum: Heart size is normal, without pericardial effusion. No mediastinal adenopathy. 1.3 cm short axis left hilar lymph node noted. Thoracic aorta is normal in caliber and enhancement. Esophagus is normal in caliber, without hiatal hernia. Bones and chest wall: No suspicious bony lesions. Ribs and thoracic spine appear intact throughout. Spine degenerative disc disease and facet arthropathy. Thyroid gland is normal. No axillary or supraclavicular adenopathy. Abdomen: Diffuse fatty infiltration of the visualized liver appeared Visualized upper abdominal solid organs otherwise appear normal in the early arterial phase of enhancement. IMPRESSION: 1. No pulmonary loss. 2. No lung consolidation or pleural effusions. 3. Atherosclerosis including the coronary vasculature. 4. Hepatic steatosis. Dictated by: Lou Staples MD, PhD on 12/23/2018 at 9:56 Approved by: Lou Staples MD, PhD on 12/23/2018 at 10:08
[2018-12-23 11:11] LABS: BUN Creatinine Ratio 23.3 (6-22); Blood Urea Nitrogen 21 mg/dL (9-20); Estimated Glomerular Filt Rate > 60.0 mL/min (>60)
== END ==
PROVIDERS: PCP Nurse Practitioner Family; Visit Provider Nurse Practitioner Family
DX: R07.1 Chest pain on breathing (principal); I25.10 Atherosclerotic heart disease of native coronary artery without angina pectoris; K76.0 Fatty (change of) liver, not elsewhere classified; T14.8XXA Other injury of unspecified body region, initial encounter; Z72.0 Tobacco use
CPT/HCPCS: 36415; 71275; 82565; 84520; Q9967

== ENCOUNTER → 2018-12-29 14:31 | Oncology outpatient (ONC) | payer MEDICARE, SELFPAY ==
[2018-12-29 16:09] VITALS: BP 166/98; PULSE 92; RESP 16; TEMP 36.6; O2SAT 96
--- NOTE | 2018-12-29 16:10 | ONC.CONS ---
History of Present Illness - Data of Consult Consult date: 12/29/18 Requesting Physician: BRIAN Parnell Primary Care Provider: BRIAN Parnell - Consult Narrative Reason for consult: Erythrocytosis Narrative: Krish Cunningham is a 68 year old male. He admits to daily active smoking for years, about 20 cigarettes a day. He said he is trying to cut down. Recently, he developed sternum chest with radiation to right shoulder a couple of months ago, and it has been getting progressively worse. The pain usually gets worse when pressed on the middle of the sternum, when taking deep breathing or when he moving his torso, particularly when lifting up his arms. During sleep, he moans when rolling. He denies any associated shortness of breath, nausea or vomiting. 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 On 11/17/2018. he went to ER because of the chest pain. At the ER, it was noted that his WBC was 9.1, HGB 18.5, HCT 4.1, and PLT 262. Checks x-ray showed no acute cardiopulmonary disease process. And EKG showed sinus rhythm, QRS interval 105, OTC 384, Q-waves in V1 and V2. Working diagnosis was osteoarthritis. Patient was given ibuprofen and naproxen. Patient there after has been followed by BRIAN Mike who referred the patient to [facility] for evaluation of erythrocytosis. On 12/23/2018, patient underwent CT a that showed no pulmonary embolism, no lung consolidation or pleural effusions, atherosclerosis including the coronary vasculature was seen and hepatic steatosis was noted. patient admitted that she has not had any lab tests for years. He is not aware of any abnormal blood findings in the past. CC: Trudy Land MD Patient reports pain?: Yes Home Medications and Allergies Home Medications Medication Instructions Recorded Confirmed Type cyclobenzaprine 10 mg tablet 10 mg PO BEDTIME PRN #14 tab 11/21/18 12/29/18 Rx lisinopril 10 mg tablet 10 mg PO DAILY #30 tab 11/21/18 12/29/18 Rx aspirin 81 mg chewable tablet 81 mg PO DAILY 11/26/18 12/29/18 History naproxen 500 mg tablet 500 mg PO BID #28 tab 12/23/18 12/29/18 Rx ibuprofen 400 mg PO Q4-6H PRN 12/29/18 12/29/18 History Allergies Allergy/AdvReac Type Severity Reaction Status Date / Time No Known Drug Allergies Allergy Verified 12/19/18 16:39 Medical History - Medical, Surgical, Family History Medical History: Medical History (Updated 12/29/18 @ 16:36 by Trudy Land MD) Hypertension Family History: Family History (Updated 12/29/18 @ 16:28 by Trudy Land MD) Father Cancer - Social History Smoking Status: Current every day smoker Review of Systems All systems PM: reviewed and no additional remarkable complaints except as stated Exam Vital signs: Last Vital Signs Temp 97.9 F 12/29/18 16:09 Pulse 92 H 12/29/18 16:09 Resp 16 12/29/18 16:09 BP 166/98 H 12/29/18 16:09 Pulse Ox 96 12/29/18 16:09 Narrative: Gen: WDWN, NAD, pleasant and cooperative. Accompanied by his . HEENT: NCAT, EOMI, PERRLA, anicteric sclera. Neck: Supple, No palpable thyromegaly or lymphadenopathy. Respiratory: CTAB, no wheezes audible. No JVD Cardiovascular: RRR, S1 and S2 normal, no M/G/R. Abdomen: Soft, NTND, BS normal, no palpable organomegaly, umbilical hernia noted Extremities: No LE pitting edema. Lymphatic: no palpable lymph nodes in the neck, axillae, or groins. Neurological: AOx3, CN II-XII grossly intact. No focal motor or sensory deficit. Psychiatric: Good judgment and insight; normal affect; normal thought process; cooperative, no depression, no anxiety. Results - Labs Pending Assessment and Plan (1) Erythrocytosis Overview: 68 year old male with incidental discovery of elevated blood hemoglobin and hematocrit levels without leukocytosis or thrombocytosis on 11/17/2018 during a visit at ER for sternum chest pain and right shoulder pain. The patient is an active smoker about 20 cigarettes a day for years. Pulmonary embolism and cardiac etiologies were excluded. No pulmonary nodule or mass was identified on the CT scan. Assessment: I talked with the patient that the differentials for erythrocytosis are relatively broad including non-hematological problems which are more often. I especially talked with him about the association of erythrocytosis with prolonged smoking. I explained to him that smoking can cause lung damage with resultant hypoxemia. As a result the bone marrow is trying to produce more red blood cells to compensate. I think this probably is the most likely scenario. I talked with him and his that I will proceed with blood work including especially erythropointin levels. If the erythropoietin level is suppressed, primary polycythemia vera needs to be excluded. Plan: 1. CBC, CMP, LDH, Ferritin, Iron panel, TSH, erythropoetin 2. RTC in 10 days to review the results.
== END ==
PROVIDERS: PCP Nurse Practitioner Family; Visit Provider Internal Medicine Hematology & Oncology
DX: D75.1 Secondary polycythemia (principal); R07.89 Other chest pain; M25.511 Pain in right shoulder; F17.210 Nicotine dependence, cigarettes, uncomplicated
CPT/HCPCS: 99204; 99214

== ENCOUNTER → 2019-03-12 14:10 | Outpatient (CLI) | payer MEDICARE, SELFPAY ==
--- NOTE | 2019-03-12 14:15 | DI.NM.S_ITS ---
PROCEDURE: NM MAYRA PERF SPECT R&S PHARM Rest and pharmacological stress myocardial perfusion SPECT with gated imaging and ejection fraction RADIOPHARMACEUTICAL: 26.7 mCi Tc-99m tetrafosmin IV at rest and 25.2 mCi Tc-99m tetrafosmin IV at peak effect of pharmacological stress. Cup-gsm-saevaina was performed. INDICATIONS: chest pain TECHNIQUE: Radiopharmaceutical was injected at peak stress test, and also at rest. SPECT images were obtained. SPECT myocardial perfusion images were displayed in short axis, horizontal long axis, and vertical long axis views. Gated images were reviewed using Pan[employer] software. COMPARISON: None. CARDIAC STRESS: A pharmacologic stress test was performed under the supervision of an attending staff, using an infusion of lexiscan 0.4mg IV X1. Hemodynamic data: There is normal blood pressure and heart rate response to pharmacologic stress. Symptoms: The patient denied anginal chest pain. Aminophylline: none EKG: No diagnostic changes of ischemia; no ectopy. FINDINGS: Raw data: There is good myocardial uptake of radiotracer. No significant motion artifacts. Ajps-vs-wuuih ratio is 0.27 (normal is less than 0.38 for tetrafosmin tracer). There is increased radiotracer uptake in the sternal area. I reviewed the CT chest dated 12/23/[address] Arias and couldn't identify any abnormality. Left ventricle function: Gated images demonstrate mild global hypokinesis. No transient ischemic dilation; TID is 1.02 (normal less than 1.3). Left ventricle resting end diastolic volume is 173 mL. Left ventricle stress ejection fraction is 44%; normal range is above 45%. Myocardial perfusion: There is normal distribution of activity in the right and left ventricular myocardium. No fixed or reversible perfusion defects. IMPRESSION: Abnormal with mildly reduced LV function. Low risk, normal pharmaceutical nuclear stress test from ischemia standpoint. 1) No perfusion evidence of ischemia or infarction. 2) Mildly enlarged left ventricle with mildly reduced LV function (post stress EF 44%). 3) No ECG evidence of ischemia. 4) No angina during the study. 5) There is increased radiotracer uptake in the sternal area. I reviewed the CT chest dated 12/23/[address] Yfn Arias (radiology) and couldn't identify any abnormality. Correlate clinically. 6) No prior nuclear stress test available for comparison. Dictated by: Trevin Quinonez MD on 03/13/2019 at 12:51 Approved by: Trevin Quinonez MD on 03/13/2019 at 12:56
--- NOTE | 2019-03-12 15:12 | PM.TREADMILL ---
Cardiac Stress Test Report Referral & Results Date Patient Seen: 03/12/19 Time Patient Seen: 15:00 Requesting provider: More Jones Indication: Chest pain Procedure Note: After both written and verbal informed consent the patient had an IV started by the diagnostic imaging RN, and then was hooked up to the treadmill monitoring system. The Lexiscan material, and then the Cardiolite tracer, were administered sequentially. An additional 3 min was spent monitoring the patient while supine on the gurney. The patient had a normal response to all infused materials. Maximum heart rate was below target, but still elevated. No EKG changes. Impression: Successful Mandi protocol. Will await perfusion imaging. Please note: Actual ECG tracings can be found in the PACS system.
== END ==
PROVIDERS: PCP Nurse Practitioner Family; Visit Provider Hospitalist
DX: R07.89 Other chest pain (principal)
CPT/HCPCS: 78452; 93016; 93017; 93018; A9502; J2785

== ENCOUNTER → 2019-04-09 12:09 | Outpatient (CLI) | payer MEDICARE, SELFPAY ==
[2019-04-09 14:10] LABS: Bacteria Urine None Seen
[2019-04-09 14:13] LABS: Appearance Urine UA CLEAR; Bilirubin Urine UA NEGATIVE (NEGATIVE); Color Urine UA YELLOW; Glucose Urine UA NEGATIVE (Negative); Ketones Urine UA NEGATIVE (NEGATIVE); Leukocyte Esterase Urine UA NEGATIVE (NEGATIVE); Nitrite Urine UA NEGATIVE (Negative); Occult Blood Urine UA 3+ (Negative); Protein Urine UA NEGATIVE (Negative); Urobilinogen Urine UA 0.2 E.U./dL (0.2); pH Urine UA 5.5 (4.5-8.0)
[2019-04-09 14:46] LABS: RBC Urine >100/HPF (0-5/HPF); WBC Urine 0-1/HPF (0-5/HPF)
[2019-04-09 14:47] LABS: Culture Indicated Urine Cult Not Indicated
== END ==
PROVIDERS: PCP Hospitalist; Visit Provider Nurse Practitioner Family
DX: R31.9 Hematuria, unspecified (principal)
CPT/HCPCS: 81001

== ENCOUNTER → 2019-04-16 12:12 | Outpatient (CLI) | payer MEDICARE, SELFPAY ==
--- NOTE | 2019-04-16 | DI.CT.S_ITS ---
PROCEDURE: CT ABDOMEN PELVIS WO/W CON INDICATIONS: gross hematuria TECHNIQUE: Optional 5 mm thick noncontrast images acquired from the diaphragm to the symphysis pubis. After the administration of intravenous contrast, 5 mm thick images acquired from the diaphragm to the symphysis pubis after a 10-minute delay. 2 mm thick coronal and sagittal reformats were then performed of the kidneys and ureters. For radiation dose reduction, the following was used: automated exposure control, adjustment of mA and/or kV according to patient size. COMPARISON: CT pulmonary angiogram 12/23/2018. FINDINGS: Image quality: Excellent. Lung bases: Mild hazy opacity at the lung bases most likely atelectasis. No pleural effusion. Heart size is normal. Coronary artery calcification. Motion artifact. Urinary system: Both kidneys are normal in size, without hydronephrosis or nephrolithiasis on pre-contrast images. No perinephric fat stranding. There is normal bilateral renal enhancement. Left mid kidney simple cyst measuring 4.4 cm. Right kidney simple cyst measuring 3.1 cm. Renal calyces appear normal in morphology when filled with contrast. Opacified portions of both ureters demonstrate normal caliber. No filling defect identified. Portions of the distal ureters are not opacified. Bladder demonstrates a small amount of nondependent air presumably due to prior procedure or catheterization. No calcified bladder stones. No filling defect in the opacified inferior aspect. Other solid organs: Liver is normal in size and enhancement. Gallbladder is unremarkable. Biliary system is non dilated. Pancreas enhances normally. Spleen is normal in size and enhancement. Small calcified splenic granuloma. No adrenal nodules. Peritoneum and bowel: Bowel loops demonstrate normal wall thickness and caliber. Moderate predominantly sigmoid colon diverticulosis. The appendix is normal. No free fluid or air. Nodes and vessels: No retroperitoneal or mesenteric adenopathy by size criteria. Aorta and inferior vena cava are normal in size. Abdominal wall: Small fat-containing periumbilical hernia. Pelvis: No pathologic free pelvic fluid. Small fat-containing bilateral inguinal hernias. Enlarged right pelvic sidewall node measuring 3.6 x 2 cm, (3/213). Prominent right external iliac node measuring a 1.2 x 1.1 cm (3/153). Bones: Spine has a heterogeneous appearance with multiple small sclerotic foci which are more conspicuous compared with the prior exam, for example; (12/30, 108). Ill-defined sclerotic foci in the pelvis. No vertebral body compression fractures. Moderate DDD. Irregularity of the sternum may be due to prior fracture or motion artifact, new compared to 12/23/2018. Right posterolateral seventh rib fracture is unchanged. Newly apparent subacute or chronic appearing right lateral seventh rib fracture and left posterior lateral seventh rib fracture. IMPRESSION: 1. No suspicious renal mass or upper urinary tract filling defect. No kidney stones. 2. Enlarged right pelvic sidewall lymph node suspicious for metastatic disease. 3. Heterogeneous appearance of the bones with multiple small sclerotic foci indeterminate for osseous metastatic disease. Bone scan may be helpful for further evaluation. Dictated by: Tim Mondragon M.D. on 04/16/2019 at 16:29 Approved by: Tim Mondragon M.D. on 04/16/2019 at 16:53
== END ==
PROVIDERS: Family Provider Hospitalist; PCP Hospitalist; Visit Provider Physician Assistant
DX: R31.0 Gross hematuria (principal)
CPT/HCPCS: 74178; Q9967

== ENCOUNTER → 2019-05-07 09:29 | Outpatient (CLI) | payer MEDICARE, SELFPAY ==
--- NOTE | 2019-05-07 | DI.NM.S_ITS ---
PROCEDURE: NM BONE SCAN WHOLE BODY RADIOPHARMACEUTICAL: 20.4 mCi Tc-99m MDP IV. INDICATIONS: Malignant neoplasm of prostate TECHNIQUE: Delayed whole-body scintigrams were obtained approximately 3-4 hours after intravenous injection of radiotracer. Anterior and posterior views were acquired from vertex to feet. COMPARISON: [facility], CT, CT ABDOMEN PELVIS WO/W CON, 04/16/2019, 15:50. FINDINGS: Numerous foci of moderate to intensely increased uptake are seen in left temporal parietal calvarium, right frontal parietal calvarium, bilateral clavicles, bilateral upper scapular more prominent on the left side, left proximal humeral shaft and head as well as right humeral head. Numerous increased radiotracer uptake throughout sternum and bilateral ribs are seen particularly involving right anterolateral fifth through seventh ribs as well as left posterior seventh rib and left anterior fifth through seventh ribs near costochondral junction. Additional foci of increased uptake are seen scattered throughout visualized lower cervical spine, thoracic spine and lumbar spine particularly involving L1-L3 levels concerning for. Diffusely increased tracer uptake in the bony pelvis is seen with foci of moderately increased uptake involving left posterior sacral region, bilateral femoral heads and intertrochanteric regions, and scattered in bilateral proximal femoral shafts. IMPRESSION: Findings suggestive of extensive metastatic disease in bilateral calvarium, bilateral shoulder joints, bilateral ribs, sternum, lower cervical, thoracic and lumbar spine vertebral bodies, bony pelvis and bilateral proximal femoral shafts. Dictated by: Jean Carlos Rothman M.D. on 05/07/2019 at 14:19 Approved by: Jean Carlos Rothman M.D. on 05/07/2019 at 14:28
[2019-05-07 10:15] LABS: BUN Creatinine Ratio 15.6 (6-22); Blood Urea Nitrogen 28 mg/dL (9-20); Estimated Glomerular Filt Rate 37.9 mL/min (>60)
--- NOTE | 2019-05-07 10:23 | DI.CT.S_ITS ---
PROCEDURE: CT CHEST W CON INDICATIONS: Malignant neoplasm of prostate TECHNIQUE: After the administration of intravenous contrast, 5 mm thick sections acquired from the pulmonary apices to the posterior costophrenic angles. 1 mm axial lung, 5 mm thick coronal and sagittal reformats and 7 mm axial MIP were acquired. For radiation dose reduction, the following was used: automated exposure control, adjustment of mA and/or kV according to patient size. COMPARISON: [facility], CT, CT ANGIO CHEST PE PROTOCOL, 12/23/2018, 9:24. FINDINGS: Image quality: Excellent. Lungs and pleura: No acute air space opacities that would suggest presence of pneumonia or neoplasm. There is a mild interstitial prominence, nonspecific, but which may represent sequela of prior smoking.. No pleural effusions or pneumothorax. Central and peripheral airways are patent and normal in caliber. Mediastinum: Heart size is normal. No pericardial effusion. No mediastinal or hilar adenopathy by size criteria. Thoracic aorta and central pulmonary arteries are normal in size. Esophagus is normal in caliber. No hiatal hernia. Bones and chest wall: There are innumerable suspicious bone lesions comprised of both focal and generalized osteoblastic change with the presence of pathologic fracture seen at the base of the glenoid on the left at the scapula, and within multiple left and right-sided ribs.Metastatic disease infiltrates the sternum were several minimally displaced sternal fractures are present.. No vertebral body compression fractures. No axillary or supraclavicular adenopathy by size criteria. Thyroid gland appears normal where well seen.. Abdomen: Visualized upper abdominal solid organs appear normal. Upper abdominal bowel loops are normal in caliber. IMPRESSION: Significant progression of osseous metastatic disease has developed across the chest, comprised of increased vague radiodensity within the marrow space, areas of subtle osteoblastic change, areas of marrow space tumor infiltration, rib pathologic fractures, and elevatedradiodensity within the spine and sternum. The appearances consistent with relatively rapid progression of presumed prostate carcinoma. Dictated by: Yfn Arias M.D. on 05/07/2019 at 14:01 Approved by: Yfn Arias M.D. on 05/07/2019 at 14:23
== END ==
PROVIDERS: PCP Hospitalist; Visit Provider Physician Assistant
DX: C61 Malignant neoplasm of prostate (principal); C79.51 Secondary malignant neoplasm of bone; R07.89 Other chest pain; M12.819 Other specific arthropathies, not elsewhere classified, unspecified shoulder
CPT/HCPCS: 36415; 71260; 78306; 82565; 84520; A9503; Q9967